=== PATIENT | female | born 1990 | race Caucasian/White ===

== ENCOUNTER 2022-12-12 22:52 | Inpatient (IN) | payer SELFPAY ==
[~2022-12-12] VITALS: Ht 165.1 cm; Wt 96.3 kg
[2022-12-12 23:12] VITALS: BP 135/77
[2022-12-12] MEDS ORDERED: LR 1,000 ML IV SCH (23:55)
[2022-12-12] MEDS ORDERED: CARBOPROST TROMETHAMINE 250 MCG/ML AMP IM PRN (23:55)
[2022-12-12] MEDS ORDERED: METHYLERGONOVINE MALEATE 0.2MG/ML 1ML VIAL IM PRN (23:55)
[2022-12-12] MEDS ORDERED: OXYTOCIN DRIP 30 UNITS in IV 1 EA IV PRN (23:55)
[2022-12-12] MEDS ORDERED: TRANEXAMIC ACID INJection 1,000 MG in NS 100 ML IV PRN (23:55)
[2022-12-12] MEDS ORDERED: LIDOCAINE 1% MDV 20ML VIAL INFIL PRN (23:55)
[2022-12-13] MEDS ORDERED: UNRESOLVED CLARIFICATION ENTRY XX STA (00:10)
[2022-12-13] MEDS ORDERED: OXYTOCIN DRIP 30 UNITS in IV 1 EA IV SCH (00:20)
[2022-12-13 00:39] LABS: HEMATOCRIT 39.8 % (36.0-47.0); HEMOGLOBIN 13.3 g/dl (12.0-15.5); MEAN CORPUSCULAR HEMOGLOBIN 29.9 pg (27.0-33.0); MEAN CORPUSCULAR HGB CONC 33.4 g/dl (32.0-36.5); MEAN CORPUSCULAR VOLUME 89.4 fl (80.0-96.0); PLATELET COUNT, AUTOMATED 219 10^3/uL (150-450); RED BLOOD COUNT 4.45 10^6/uL (4.00-5.40); WHITE BLOOD COUNT 11.1 10^3/uL (4.0-10.0)
[2022-12-13] MEDS ORDERED: AMPICILLIN SOD/SULBACTAM SOD 3 GM in D5W MINI-BAG PLUS 100 ML IV SCH (01:00)
[2022-12-13 01:20] LABS: HIV 1&2 SCREEN NEGATIVE (NEGATIVE)
[2022-12-13] MEDS ORDERED: HOME MED LIST COMPLETE! XX SCH (03:50)
[2022-12-13 04:40] VITALS: BP 109/56; O2SAT 97
[2022-12-13 06:00] VITALS: BP 112/65; O2SAT 98
[2022-12-13] MEDS ORDERED: DIBUCAINE 1% OINTMENT 30GM TOP PRN (08:30)
[2022-12-13] MEDS ORDERED: IBUPROFEN 600MG TAB PO PRN (08:30)
[2022-12-13] MEDS ORDERED: ACETAMINOPHEN 500 MG TAB PO PRN (08:30)
[2022-12-13] MEDS ORDERED: ANUSOL HC CREAM 30GM TOP PRN (08:30)
[2022-12-13] MEDS ORDERED: RHOGAM 300MCG (1500IU) INJ IM SCH (08:30)
[2022-12-13] MEDS ORDERED: MOM 30ML SUSPENSION UDC PO PRN (08:30)
[2022-12-13] MEDS ORDERED: DOCUSATE SODIUM 100MG CAPSULE PO PRN (08:30)
[2022-12-13] MEDS ORDERED: PRENATAL VITAMINS CHEWABLE TABLET PO SCH (09:00)
[2022-12-15] MEDS ORDERED: MEASLES,MUMPS,RUBELLA VACCINE INJ (MMR-II) SC.IMMUN ONE (09:00)
== END 2022-12-13 17:00 | disposition home or self-care (01) | DRG 560 ==
LOC: M LDO 22:52 → M LDI 23:41 → M OBS 12-13 04:36
PROVIDERS: ADMIT Obstetrics & Gynecology; ATTEND Obstetrics & Gynecology
PROC: 10E0XZZ Delivery of Products of Conception, External Approach (ICD-10-PCS; principal; 2022-12-13)
DX: O42.12 Full-term premature rupture of membranes, onset of labor more than 24 hours following rupture (principal); Z3A.38 38 weeks gestation of pregnancy; O34.211 Maternal care for low transverse scar from previous cesarean delivery; Z37.0 Single live birth

== ENCOUNTER 2024-04-29 16:29 | Outpatient (CLI) | payer SELFPAY ==
[~2024-04-29] VITALS: Ht 154.9 cm; Wt 97.7 kg
[2024-04-29 16:57] VITALS: BP 129/65
[2024-04-29] MEDS ORDERED: HOME MED LIST COMPLETE! XX SCH (17:00)
[2024-04-29] MEDS: diphenhydrAMINE 25MG CAP PO ONE (18:27)
[2024-04-29 18:38] LABS: HEMATOCRIT 37.5 % (36.0-47.0); HEMOGLOBIN 12.5 g/dl (12.0-15.5); MEAN CORPUSCULAR HEMOGLOBIN 30.5 pg (27.0-33.0); MEAN CORPUSCULAR HGB CONC 33.3 g/dl (32.0-36.5); MEAN CORPUSCULAR VOLUME 91.5 fl (80.0-96.0); PLATELET COUNT, AUTOMATED 228 10^3/uL (150-450); WHITE BLOOD COUNT 13.1 10^3/uL (4.0-10.0)
[2024-04-29] MEDS: HYDROCORTISONE 1% CREAM 30GM TOP ONE (18:50)
[2024-04-29 19:10] LABS: ALBUMIN 2.7 G/DL (3.2-5.2); ALKALINE PHOSPHATASE 107 U/L (35-104); ALT/SGPT 18 U/L (7.0-40); AST/SGOT 18 U/L (<34); BILIRUBIN,TOTAL 0.4 MG/DL (0.3-1.2); BLOOD UREA NITROGEN 9 MG/DL (9-23); CALCIUM LEVEL 8.7 MG/DL (8.5-10.1); CARBON DIOXIDE LEVEL 21 MMOL/L (20-31); CHLORIDE LEVEL 109 MMOL/L (98-107); CREATININE FOR GFR 0.44 MG/DL (0.55-1.30); GLOMERULAR FILTRATION RATE > 60.0 (>60); GLUCOSE, FASTING 71 MG/DL (60-100); POTASSIUM SERUM 3.6 MMOL/L (3.5-5.1); SODIUM LEVEL 138 MMOL/L (136-145); TOTAL PROTEIN 5.9 G/DL (5.7-8.2)
== END 2024-04-29 20:00 | disposition home or self-care (01) ==
LOC: M LDO 16:29
PROVIDERS: ATTEND Specialist
DX: O26.893 Other specified pregnancy related conditions, third trimester (principal); R21 Rash and other nonspecific skin eruption; Z3A.36 36 weeks gestation of pregnancy
CPT/HCPCS: 36415; 59025; 76815; 80053; 82542; 85027; G0463

== ENCOUNTER 2024-05-25 13:33 | Outpatient (CLI) | payer SELFPAY ==
[~2024-05-25] VITALS: Ht 157.5 cm; Wt 103.8 kg
[2024-05-25] MEDS ORDERED: PRENTAB9 PO (13:56)
[2024-05-25] MEDS ORDERED: HOME MED LIST COMPLETE! XX SCH (14:00)
[2024-05-25 14:03] VITALS: BP 142/78
[2024-05-25 15:48] VITALS: BP 126/73; O2SAT 99
== END 2024-05-25 17:51 | disposition home or self-care (01) ==
LOC: M LDO 13:33
PROVIDERS: ATTEND Obstetrics & Gynecology
DX: O47.1 False labor at or after 37 completed weeks of gestation (principal); Z3A.39 39 weeks gestation of pregnancy
CPT/HCPCS: 59025; 76811; 76819; 76820; G0463